=== PATIENT | female | born 1985 | race Caucasian/White ===

== ENCOUNTER → 2017-09-07 | Outpatient (CLI) | payer OTHER ==
[~2017-09-07] MED LIST: ASCO-182 PO; ASCO60LO9 PO; CHOL10005 PO; CRAN200C5 PO; PREN-127 PO
== END ==
LOC: LAB 09:11
PROVIDERS: ATTEND Obstetrics & Gynecology
DX: Z34.03 Encounter for supervision of normal first pregnancy, third trimester (principal)
CPT/HCPCS: 87081

== ENCOUNTER → 2017-09-10 | Outpatient (CLI) | payer OTHER ==
--- NOTE | 2017-09-10 14:15 | RADIOLOGY IMAGING REPORT ---
[place] [facility] [place] NAME: Yolanda Fatima : 1985 MR: [id number] V: [id number] EXAM DATE: ORDERING PHYSICIAN: ABHAY WAGNER TECHNOLOGIST: Location: [facility] Patient: Yolanda Fatima : 1985 Visit/Account:[id number] Date of Sevice: 09/10/2017 OB Ultrasound > 14 weeks with anatomic evaluation. 3-D imaging was performed by the technologis t according to protocols developed by the radiologists and the facility radiology staff. Representat susan images are stored on PACS. Additional Pertinent history: Evaluate weight, LETITIA COMPARISON STUDIES: The ultrasound January 24, 2017 FINDINGS: Intrauterine gestations: one presentation: Vertex heart rate: 149 bpm Amniotic fluid index: 17.1 cm Largest amniotic fluid pocket 6.1 cm Placenta: Fundal without previa Uterus: gravid, otherwise normal Maternal adnexa: Unremarkable Gestational Parameters: BPD: 9.94 cm 40 weeks, 6 days HC: 38 cm AC: 36.6 cm 40 weeks, 5 days FL: 7.6 cm 38 weeks, 6 days Gestational age: 38 weeks, 3 days based on LMP HUMERA: 09/21/2017 Estimated weight (EFW): 4605 gm, greater than 98th percentile Anatomic Survey: Not performed IMPRESSION: 1. Single live intrauterine gestation. 2. Estimated weight 4650 gm, greater than 98th percentile. 3. LETITIA: 17.1 cm Report Dictated By: Homar Man DO at 09/10/2017 2:06 PM Report E-Signed By: Homar Man DO at 09/10/2017 2:12 PM WSN:LAVERN
== END ==
LOC: RAD 07:54
PROVIDERS: ATTEND Obstetrics & Gynecology
DX: Z02.9 Encounter for administrative examinations, unspecified (principal)
CPT/HCPCS: 76815

== ENCOUNTER 2017-09-14 05:10 | Inpatient (IN) | payer OTHER ==
[~2017-09-14] VITALS: Ht 157.5 cm; Wt 90.7 kg
[2017-09-14] MEDS ORDERED: FAMOTIDINE(*) 20MG/50ML PREMIX 50 ML IVPB PRN (05:11)
[2017-09-14] MEDS ORDERED: OXYTOCIN 30 UNIT/D5LR 500 ML 500 ML IV PRN ×2 (05:11→05:15)
[2017-09-14] MEDS ORDERED: LIDOCAINE 1% LOCAL 300 MG/30ML INJ PRN (05:15)
[2017-09-14] MEDS ORDERED: LIDOCAINE/SOD BICARB 8.4% SYR SC PRN (05:15)
[2017-09-14] MEDS ORDERED: FLUSH 10 ML SYR IVP PRN (05:15)
[2017-09-14] MEDS ORDERED: METOCLOPRAMIDE 10 MG/2 ML SDV IVP PRN (05:15)
[2017-09-14] MEDS ORDERED: DLR(*) 1000 ML BAG 1,000 ML IV PRN (05:15)
[2017-09-14] MEDS ORDERED: ONDANSETRON 4 MG/2 ML VIAL IVP PRN (05:15)
[2017-09-14] MEDS ORDERED: fentaNYL CITR 100 MCG/2 ML AMP IVP PRN (05:15)
[2017-09-14] MEDS ORDERED: TERBUTALINE SULF 1 MG/ML VIAL SUBQ PRN (05:15)
[2017-09-14] MEDS ORDERED: ceFAZolin(*) 2GM/D5W 50ML 50 ML IVPB PRN (05:15)
[2017-09-14] MEDS: LR(*) 1000 ML BAG 1,000 ML IV PRN ×2 (06:28→16:24)
[2017-09-14 06:29] LABS: PLATELET COUNT, AUTOMATED 181 K/uL (150-450)
[2017-09-14 07:29] VITALS: BP 129/84; Ht 157.5 cm; Wt 90.7 kg
--- NOTE | 2017-09-14 11:11 | History & Physical ---
History of Present Illness Age of Patient: 31 : 1 Para or TPAL: 0 EDC per LMP: Sep 21, 2017 EDC per U/S: Sep 24, 2017 Estimated Gestational Age: 39.0 Chief Complaint Induction of labor History of Present Illness Pt is a 31 y/o @ 39-0/7 weeks gestation who presents to L&D for induction of Labor secondary to suspected Macrosomic infant. Pt had U/S on 09/10/17 that showed an weighing 4650 gms with an LETITIA of 17. Pt today denies any contractions. Does feel pressure. No bleeding or spotting. Good movement. History Patient's Blood Type: AB Positive Rubella Status: Immune Group B Strep Screen: Negative Obstetrical History: Past Medical History: Eczema Dental Surgery Hx of alcoholism Allergies: Coded Allergies: azithromycin (Verified Allergy, Mild, GI, 01/24/17) onion (Unverified Adverse Reaction, Mild, 08/13/17) upset stomach Social History: =Remy. Denies use of alcohol, tobacco, or recreational drugs Family History: FH: breast cancer Maternal Great Aunt Maternal Great Grandmother FH: diabetes mellitus Paternal Great Aunt FH: type 1 diabetes Paternal Cousin Med Rec Home Meds Reported Medications Ascorbic Acid (VITAMIN C) 60 Mg Lozenge, 60 MG PO, LOZENGE 08/16/17 Cholecalciferol (Vitamin D3) (VITAMIN D3) 1,000 Unit Tablet, 1000 UNIT PO, TAB 08/16/17 Cranberry Extract (CRANBERRY) 200 Mg Capsule, 200 MG PO, CAPSULE 08/16/17 Vits W-Ca,Fe,Fa(<1MG) ( VITAMINS) 1 Each Tablet, 1 EACH PO DAILY, TAB 01/24/17 Review of Systems All Systems Reviewed/Normal: Yes, Except as Noted Constitutional: No Fever, No Weight Loss, No Weight Gain, No Chills, No Night Sweats, No Other Neurological: No Syncope, No Confusion, No Weakness, No Dizziness, No Slurred Speech, No Other Eyes: No Vision Change, No Loss of Vision, No Photophobia, No Other ENT: No Hearing Loss, No Sinus Congestion, No Sore Throat, No Ear Ache, No Tinnitus, No Other Cardiovascular: No Chest Pain, No Palpitations, No Orthostatic Hypotension, No Other Respiratory: No Shortness of Breath, No Cough, No Wheezing, No Other Gastrointestinal: No Nausea, No Vomiting, No Diarrhea, No Dysphagia, No Constipation, No Early Satiety, No Hematemesis, No Hematochezia, No Melena, No Abdominal Pain, No Other Genitourinary: No Dysuria, No Hematuria, No Urinary Incontinence, No Other Musculoskeletal: No Pain, No Sprain, No Strain, No Impaired Mobility, No Other Psychiatric: No Depression, No Anxiety, No Other Exam General Exam Vital Signs Vital Signs Date Time Temp Pulse Resp B/P (MAP) Pulse Ox O2 Delivery O2 Flow Rate FiO2 09/14/17 07:29 97.9 102 15 129/84 (99) 94 Room Air General Apperance: Alert/Awake/No Acute Distress Neuro: No Gross deficits Eyes: Normal Extraocular Movement & VisonJASONLA ENT: Normal Cardiovascular: Regular Rate and Rhythm Respiratory: No Respiratory Distress, Clear to Auscultation Abdomen: Soft, Non-Tender, Non-Distended, Gravid - Non-Tender : Normal Musculoskeletal: No Weakness/Pain Extremities: No Cyanosis,Clubbing or Edema Integumentary: Skin Intact without Lesions or Rash Psychological: Alert & Oriented X3 Vaginal Discharge/Fluid?: Clear Fluid (with amniotomy), Moderate Amount Cervical Dialation: 4 Cervical Effacement (%): 75 Cervical Consistency: Moderate Cervical Position: Anterior Station: -2 Presentation: Vertex Uterine Contractions(Q min): 3 Uterine Contraction Strength: Moderate UC Resting Tone: Soft Fetus Feeling Movement?: Yes Estimated Weight(grams): 4605 Heart Tones: 130 Heart Tone Variabilty: Moderate FHT Accelerations: 15X15 FHT Decelerations: Variable FHT Category: II Medical Decision Making Data Points Result Diagram: 09/14/17 0601 Pre-Admit Course Medical Record Review: Yes VTE Prophylasis: Adult Deep Vein Thrombosis/Pulmonary: No Assessment and Plan CARBIDE OPERATOR Assessment: Stable CARBIDE OPERATOR Plan: Routine Labor/Induct Care Problems: (1) Encounter for elective induction of labor Assessment & Plan: EFW 4600 gms. Currently on oxytocin 16 mU/min. S/P amniotomy. Will monitor contractions. Epidural if wanted. WAQAS PERLA DO Sep 14, 2017 11:11
[2017-09-14] MEDS ORDERED: LIDOCAINE/PF 2% 200MG/10ML AMP 200 MG/10 ML AMPUL EPI PRN (14:05)
[2017-09-14] MEDS ORDERED: LIDO/EPI 2% MPF 1:200,000 20ML EPI PRN (14:05)
[2017-09-14] MEDS ORDERED: BUPIVACAINE 0.25% MPF INJ EPI PRN (14:05)
[2017-09-14] MEDS ORDERED: ePHEDrine 25 MG/5 ML DISP.SYR IVP PRN (14:05)
[2017-09-14] MEDS ORDERED: fentaNYL CITR 100 MCG/2 ML AMP IT PRN (14:05)
[2017-09-14] MEDS ORDERED: FENTANYL/ROPIVACAINE 100 ML BAG EPI PRN (14:05)
[2017-09-14] MEDS ORDERED: EPIDURAL KEYS XX PRN (14:45)
[2017-09-14] MEDS ORDERED: ROPIVACAINE EPI ONE ×2 (16:05→16:15)
--- NOTE | 2017-09-14 16:20 | Anesthesia OB Pre-Anes Eval ---
History of Present Illness Anesthesia Start Date: Sep 14, 2017 Anesthesia Start Time: 15:15 OB Anesthesia Diagnosis: induction - medical Current Complication: other Complications: 10.2 # by measure EDC: Sep 21, 2017 : 1 Para: 0 Vital Signs: Vital Signs 09/14/17 07:29 Temp 97.9 Pulse 102 Resp 15 B/P (MAP) 129/84 (99) Pulse Ox 94 O2 Delivery Room Air Pain Ratin Result Diagram: 09/14/17 0601 Height (Inches): 62.00 Weight (Pounds): 200 BMI Calculated: 36.58 Past Medical History Medical History: alcohol use/abuse (clean 10 yrs) Attended Childbirth Classes?: No Hx Anesthesia Reactions: No Hx Family Anesthesia Reaction: No Current Medications: pitocin Home Meds Reported Medications Ascorbic Acid (VITAMIN C) 60 Mg Lozenge, 60 MG PO, LOZENGE 08/16/17 Cholecalciferol (Vitamin D3) (VITAMIN D3) 1,000 Unit Tablet, 1000 UNIT PO, TAB 08/16/17 Cranberry Extract (CRANBERRY) 200 Mg Capsule, 200 MG PO, CAPSULE 08/16/17 Vits W-Ca,Fe,Fa(<1MG) ( VITAMINS) 1 Each Tablet, 1 EACH PO DAILY, TAB 01/24/17 Allergies: Coded Allergies: azithromycin (Verified Allergy, Mild, GI, 01/24/17) onion (Unverified Adverse Reaction, Mild, 08/13/17) upset stomach Anesthesia OB ROS Neurological: No migraines/headaches, No seizures, No neuropathy, No other ENT: Denies Tooth caps, Denies Loose teeth, Denies Chipped teeth, Denies Dentures, Denies Bridges, Denies Retainers, Denies Veneers, Denies Implants, Denies Tongue ring, Denies Other Pulmonary: No asthma, No smoker (pks/day/yrs), No other Airway Class: ll Cardiovascular ROS: No edema, No arrhythmia, No other GI ROS: clear liquids Last Solids Date: Sep 13, 2017 Last Solids Time: 22:00 ROS: No Herpes, No STD(s), No Liver Disease, No Renal Disease, No Other Endocrine ROS: No diabetes, No gestational diabetes, No thyroid disorder, No other Musculoskeletal ROS: No low back pain, No low back injury, No scoliosis, No other ASA Classification: 2 Assessment and Plan Anesthesia Plan: CSE LABER,TINY FORMULA BOTTLER Sep 14, 2017 16:19
--- NOTE | 2017-09-14 16:22 | Procedure Note ---
Anesthetic Placement Note Anesthesia Plan: CSE Permit for Anesthesia Signed: Yes Anesthesia Technique: Patient Sitting Anesthesia Prep: Chlorhexidine Interspace: L 3-4 Local Anesthetic: 1% Lidocaine Amount Local - cc's: 3 Anesthesia Needle: 17g Touhy/Schliff Anesthesia Attempts: 2 Loss of Resistance: Normal Saline Depth of ANTONELLA (cm): 4.5 Epidural Needle Placement: No CSF, No Blood, No Parasthesia Intrathecal Needle: 27 Gauge Pencan Cerebral Spinal Fluid: Yes, Clear Catheter Insertion (cm): 5 Catheter Type: Oscar - Spring Wound Epidural Dressing: Tegaderm, Tape Anesthesia Tray: Lot Number ([id number]), Expiration Date (10/25), Reference Number ([id number]) Anesthesia Medications: Intrathecal Dose: mg Marcaine MPF (2.5) Epidural Test Dose: 1.5 Lido/Epi (1:200,000), Dose - mL (3), Time (1536) Epidural Infusion: 0.2% Ropivicaine, Start Time: (1608) Epidural Pump Setting: Bolus Dose - mL (6), Lockout - Minutes (20), Maintenance Rate - mL/hr (6), Maximum per Hour - mL (24) Complications: None TINY LADD CRNA Sep 14, 2017 16:22
--- NOTE | 2017-09-14 17:06 | Labor Progress Note ---
Labor Subjective Progress Notes Subjective Pt getting comfortable s/p epidural. Vaginal Discharge/Fluid: Bloody Show, Clear Fluid Labor Pain: Mild Neurological: No Headache, No Other Eyes: No Visual Disturbances Labor Objective Vital Signs Vital Signs Date Time Temp Pulse Resp B/P (MAP) Pulse Ox O2 Delivery O2 Flow Rate FiO2 09/14/17 07:29 97.9 102 15 129/84 (99) 94 Room Air Cervical Dialation: 8 Cervical Effacement (%): 90 Cervical Position: Anterior Station: -1 Fetus Heart Tone Variabilty: Moderate FHT Accelerations: 15X15 FHT Decelerations: None FHT Category: I Other Result Diagram: 09/14/17 0601 Assessment and Plan HOST Assessment: Stable HOST Plan: Routine Labor/Induct Care Problems: (1) Encounter for elective induction of labor Assessment & Plan: Pt continues to make appropriate cervical change. Will continue to monitor. Pt s/p epidural. WAQAS PERLA DO Sep 14, 2017 17:05
--- NOTE | 2017-09-14 18:39 | Anesthesia Progress Note ---
Progress/Maintenance Anesthesia Note Date: Sep 14, 2017 Anesthesia Note Time: 17:15 Pain Intensity: 1 Pump: On Pump Rate (ML/HR): 6 Sensory Level: had a sm window on L hip, Motor Level: Bending Knees-Bilateral Dilatation: 8 Position: Left Anesthesia Treatment: pt hit button & dose helped TINY Medina CRNA Sep 14, 2017 18:39
--- NOTE | 2017-09-14 23:25 | Anesthesia Progress Note ---
Progress/Maintenance Anesthesia Note Date: Sep 14, 2017 Anesthesia Note Time: 21:00 Pain Intensity: 5 Pump: On Pump Rate (ML/HR): 4 Motor Level: Other (R leg too numb , pump down to 4) Dilatation: 9 Position: Right TINY LADD CRNA Sep 14, 2017 23:25
--- NOTE | 2017-09-14 23:27 | Anesthesia Progress Note ---
Progress/Maintenance Anesthesia Note Date: Sep 14, 2017 Anesthesia Note Time: 23:30 Pain Intensity: 7 Pump: On Pump Rate (ML/HR): 6 Motor Level: Bending Knees-Bilateral Dilatation: 9 Position: Left Drug Bolus: 0.2% Ropivicaine (6cc) Anesthesia Treatment: legs back, pump up to 6 with bolus, rim on r side TINY LADD CRNA Sep 14, 2017 23:27
[2017-09-15] MEDS: LR(*) 1000 ML BAG 1,000 ML IV PRN (00:30)
[2017-09-15] MEDS ORDERED: OXYTOCIN 30 UNIT/D5LR 500 ML 500 ML ONE (04:07)
[2017-09-15] MEDS ORDERED: CARBOPROST TROMETHAM 250MCG/ML IM ONLY ONE (04:07)
[2017-09-15] MEDS ORDERED: METHYLERGONOVINE MAL 0.2MG/ML ONE (04:07)
--- NOTE | 2017-09-15 04:30 | Anesthesia Progress Note ---
Assessment and Plan Anesthesia Plan: CSE Anesthesia Stop Day: Sep 15, 2017 Anesthesia Stop Time: 04:40 Epidural Catheter Removal: Removed by: (WYATT Angel) TINY LADD CRNA Sep 15, 2017 04:30
--- NOTE | 2017-09-15 05:11 | OB Delivery Note ---
Delivery Note Vaginal Delivery Type: Spont. Vaginal Delivery Delivery Date: Sep 15, 2017 Delivery Time: 04:17 Estimated Gestational Age(wks): 39.1 Length of Labor Stage I (hrs): 12 Length of Labor Stage II (hrs): 3.5 Labor Stage III (minutes): 3 Delivery Anesthesia: Epidural, Local (10 cc 1% Lidocaine for repair only) Sex: Male Weight (gms): 3635 (8#0oz) Apgars: 1 Minute (7), 5 Minute (8) Repair Needed: Labial (left), 2nd Degree Estimated Blood Loss: 500 Veneer Press Operator in Attendence: WAQAS Fischer DO Sep 15, 2017 05:11
[2017-09-15] MEDS ORDERED: MEASLES,MUMP,RUBELLA VAC 0.5ML SC ONE (05:15)
[2017-09-15] MEDS ORDERED: BENZOCAINE 20% 60 ML BTL TP PRN (05:15)
[2017-09-15] MEDS ORDERED: DIPHTH/TETANUS/ACEL. PERTUSSIS IM ONE (05:15)
[2017-09-15] MEDS ORDERED: INFLUENZA VIRUS VAC 0.5 ML SYR IM ONLY ONE (05:15)
[2017-09-15] MEDS ORDERED: GLYCERIN/WITCH HAZEL LEAF 1 PK TOP PRN (05:15)
[2017-09-15] MEDS ORDERED: LANOLIN OINT 7 GM TUBE TP PRN (05:15)
[2017-09-15] MEDS ORDERED: HYDROCORTISONE 2.5% CR 30GM TB PR PRN (05:15)
[2017-09-15] MEDS ORDERED: MAGNESIUM HYDROXIDE* 30ML UDCP PO PRN (05:15)
[2017-09-15] MEDS: IBUPROFEN 800 MG TAB PO SCH ×3 (07:24→15:36)
[2017-09-15 07:25] VITALS: BP 111/60
--- NOTE | 2017-09-15 09:43 | Anesthesia Post Eval Note ---
Anesthesia Post Eval Note Vital Signs 09/14/17 09/15/17 07:29 07:25 Temp 97.8 Pulse 102 Resp 18 B/P (MAP) 111/60 (77) Pulse Ox 94 O2 Delivery Room Air Pt able to participate in Eval: Yes Cardiovascular Status: Satisfactory Respiratory Status: Satisfactory Pain Managment: Satisfactory PO Nausea/Vomiting: Satisfactory Temperature Management: Satisfactory Mental Status: Satisfactory, Alert, Oriented X3 Post-Op Hydration Status: Satisfactory, Tolerating PO Well, Voiding w/o Difficulty Anesthesia Type: TINY CONNOLLY CRNA Sep 15, 2017 09:43
[2017-09-15] MEDS: DOCUSATE CALCIUM 240 MG CAP PO SCH ×2 (09:56→22:05)
[2017-09-15] MEDS ORDERED: ACETAMINOPHEN 325 MG TAB PO SCH (10:00)
[2017-09-15 11:17] VITALS: BP 105/59
--- NOTE | 2017-09-15 14:28 | DELIVERY NOTE ---
DELIVERY DATE: September 15, 2017 SURGEON: Rafat Lopez DO ANESTHESIA: Epidural PREOPERATIVE DIAGNOSES 1. A 31-year-old 1, para 0 at 39-1/7 weeks gestation. 2. Induction of labor. 3. Suspected macrosomia on ultrasound. POSTOPERATIVE DIAGNOSES 1. A 31-year-old 1, para 0 at 39-1/7 weeks gestation. 2. Induction of labor. 3. Suspected macrosomia on ultrasound. 4. Delivered. PROCEDURE Spontaneous vaginal delivery with repair of second degree midline laceration and left labia laceration. FINDINGS Liveborn male at 0417 hours with Apgars of 7 and 8, weighing 3635 g, 8 pounds 0 ounces, three vessel cord, intact placenta over a second degree midline laceration with a left labia laceration. ESTIMATED BLOOD LOSS 500 mL. COMPLICATIONS None known. CONDITION Stable times two. Mother and remained in the LDRP. Infant was taken to the nursery for transient tachypnea of the . COUNTS Correct times two. LABOR SUMMARY Patient is a 31-year-old 1, para 0 at 39-1/7 weeks gestation who presented to Labor and Delivery on September 14, 2017 for a scheduled induction of labor secondary to suspected macrosomia. Ultrasound was performed on September 10, 2017 with an estimated weight of 4605 g, which is 10 pounds 2 ounces. Patient was 4 cm in the office and was counseled that secondary to increased weight on ultrasound that going much further than 39 weeks would increase risks of maternal as well as risk to the . After counseling the patient decided to proceed with induction of labor. She was initially 4 cm and was started on oxytocin, and after about three and a half hours of oxytocin she underwent amniotomy with clear amniotic fluid, began to feel increased pressure and eventually did request an epidural. Patient remained on oxytocin and was making adequate change until she was 9 cm. She remained 9 cm/anterior lip for approximately three hours. It was deemed that the contractions were hypotonic and oxytocin was increased. Once oxytocin was increased she quickly was complete. Because the station was high or -1, she labored down for a short while. After laboring down, Nursing coached the patient on pushing and with a few trial pushes deemed that they could continue to push. After about an hour and a half of pushing, the delivery team was called and assembled. DELIVERY SUMMARY Patient as placed in the dorsal lithotomy position. She was prepped and draped in the usual sterile manner. Upon maternal pushing, the infant's head delivered in a controlled manner. The infant was straight up occiput anterior. It did restitute to occiput right occiput anterior. With gentle downward motion, the anterior shoulders were delivered underneath the pubic symphysis, followed by gentle upward motion to allow delivery of the posterior shoulder. The remainder of the 's body delivered spontaneously. At this point a vigorous male infant was delivered. He was placed on the maternal abdomen where mouth and nose were bulb suctioned. After two and a half minutes the cord was clamped times two and cut by the 's father. The nursing staff continued to vigorously clean the , as well as mouth and nose bulb suctioned. Cord blood was obtained. The placenta delivered spontaneously with gentle cord traction. Oxytocin was infused to help with uterine tone. The uterus was massaged, deemed firm. Next, upon inspection of the perineum and vagina, cervix, and labia, it was noted that there was a second degree midline laceration and a left labial laceration. The second degree midline laceration was repaired with a 3-0 Vicryl in a running manner. The left labial laceration was repaired with a 3-0 Vicryl also in a running manner. With the lacerations repaired, hemostasis was noted. The patient was cleaned, the labor bed was reassembled. [facility]ITAL[facility]
[2017-09-15 15:15] VITALS: BP 99/59
[2017-09-15] MEDS ORDERED: ACETAMINOPHEN 500 MG TAB PO SCH (17:00)
[2017-09-15] MEDS: ACETAMINOPHEN 500 MG TAB PO SCH (18:09)
[2017-09-15 19:54] VITALS: BP 120/63
[2017-09-16] VITALS: BP 108/62
[2017-09-16] MEDS: IBUPROFEN 800 MG TAB PO SCH ×2 (00:28→08:29)
[2017-09-16 04:03] VITALS: BP 112/76
[2017-09-16 08:00] VITALS: BP 119/70
[2017-09-16] MEDS: DOCUSATE CALCIUM 240 MG CAP PO SCH (08:29)
[2017-09-16] MEDS: ACETAMINOPHEN 500 MG TAB PO SCH ×2 (08:30→09:00)
--- NOTE | 2017-09-16 09:26 | OB/GYN Progress Note ---
OB Subjective Progress Notes Subjective Doing good this morning. Pain controlled with Tylenol and Ibuprofen. Ambulatory. Voiding with out any difficulty. Tolerating regular diet. . Lochia appropriate. GI: NEG Nausea, NEG Vomiting, NEG Flatus, NEG Bowel Movement : Voiding Well, Vaginal Bleeding, Moderate Pain: Mild, Tolerating PO Pain Meds Neurological: No Headache, No Other Eyes: No Visual Disturbances OB Objective Physical Exam Vital Signs Date Time Temp Pulse Resp B/P (MAP) Pulse Ox O2 Delivery O2 Flow Rate FiO2 09/16/17 04:03 97.8 77 18 112/76 (88) 09/15/17 19:54 92 Room Air General Appearance: Alert/Awake/No Acute Distress Neurological: No Gross deficits Eyes: Normal Extraocular Movement & Vison, PERRLA Cardiovascular: Normal Rhythm & Peripheral Pulses Respiratory: No Respiratory Distress, Clear to Auscultation Abdomen: Soft, Non-Tender, Non-Distended, Fundus Firm : Normal Extremities: No Cyanosis,Clubbing or Edema Integumentary: Skin Intact without Lesions or Rash Psychological: Alert & Oriented X3, Appropriate Mood & Affect Result Diagram: 09/16/17 0655 Assessment and Plan MEDICAL RECORD SPECIALIST Assessment: Stable MEDICAL RECORD SPECIALIST Plan: Discharge Home Today Problems: (1) Encounter for elective induction of labor Assessment & Plan: Discharge is given for infant. Pt meeting all post goals. Discussed pain medications, pelvic rest, and . Pt to follow up at the latest in 6 weeks, sooner if there are issues. WAQAS PERLA DO Sep 16, 2017 09:26
[2017-09-16] MEDS ORDERED: IBUP800T37 PO (09:27)
--- NOTE | 2017-09-16 09:30 | OB/GYN Discharge Summary ---
Discharge Summary Reason for Hosp/Final Diag: (1) Encounter for elective induction of labor Hospital Course & Plan: Pt presented for an induction of labor secondary to suspected Macrosomia. Pt underwent IOL and got to complete and delivered with out any complication (see delivery note for details). Pt remained in the hospital for 2 days post . She met all the post in patient goals and was discharged home on PPD # 2. Lates Vital Signs Vital Signs Date Time Temp Pulse Resp B/P (MAP) Pulse Ox O2 Delivery O2 Flow Rate FiO2 09/16/17 04:03 97.8 77 18 112/76 (88) 09/15/17 19:54 92 Room Air Weight (Pounds): 200 Result Diagram: 09/16/17 0655 Condition: Improved Discharge: Home Home Meds Active Scripts Ibuprofen (IBUPROFEN) 800 Mg Tablet, 800 MG PO 0000,0800,1600, #20 TAB 0 Refills Prov:WAQAS PERLA DO 09/16/17 Reported Medications Ascorbic Acid (VITAMIN C) 60 Mg Lozenge, 60 MG PO, LOZENGE 08/16/17 Cholecalciferol (Vitamin D3) (VITAMIN D3) 1,000 Unit Tablet, 1000 UNIT PO, TAB 08/16/17 Cranberry Extract (CRANBERRY) 200 Mg Capsule, 200 MG PO, CAPSULE 08/16/17 Vits W-Ca,Fe,Fa(<1MG) ( VITAMINS) 1 Each Tablet, 1 EACH PO DAILY, TAB 01/24/17 Follow up with: [facility] [phone] Follow up in: 6 wks PP or PO Discharge Diet: As Tolerates, Resume Prior Admit Diet Discharge Activity: As Tolerates, Pelvic Rest WAQAS PERLA DO Sep 16, 2017 09:30
[2017-09-16 11:08] VITALS: BP 114/69
== END 2017-09-16 11:49 | disposition home or self-care (01) | DRG 775 ==
LOC: OB 05:10
PROVIDERS: ADMIT Student in an Organized Health Care Education/Training Program; ATTEND Student in an Organized Health Care Education/Training Program
PROC: 10907ZC Drainage of Amniotic Fluid, Therapeutic from Products of Conception, Via Natural or Artificial Opening (ICD-10-PCS; 2017-09-14)
PROC: 3E033VJ Introduction of Other Hormone into Peripheral Vein, Percutaneous Approach (ICD-10-PCS; 2017-09-14)
PROC: 10E0XZZ Delivery of Products of Conception, External Approach (ICD-10-PCS; principal; 2017-09-15)
PROC: 0KQM0ZZ Repair Perineum Muscle, Open Approach (ICD-10-PCS; 2017-09-15)
DX: O36.63X0 Maternal care for excessive fetal growth, third trimester, not applicable or unspecified (principal); O70.1 Second degree perineal laceration during delivery; O62.2 Other uterine inertia; L30.9 Dermatitis, unspecified; F10.21 Alcohol dependence, in remission; Z37.0 Single live birth; Z3A.39 39 weeks gestation of pregnancy; Z88.1 Allergy status to other antibiotic agents
CPT/HCPCS: 36415; 85025; 85027; 86850; 86900; 86901; J2405; J2590; J7120; S0020